=== PATIENT | male | born 1975 | race American Indian/Alaskan Native ===

== ENCOUNTER 2020-06-19 06:33 | Emergency (ER) | payer SELFPAY ==
[2020-06-19 06:55] VITALS: BP 131/86
== END 2020-06-19 08:40 | disposition left against medical advice (07) ==
LOC: ED 06:33
DX: L02.818 Cutaneous abscess of other sites (principal); Z53.21 Procedure and treatment not carried out due to patient leaving prior to being seen by health care provider